=== PATIENT | female | born 1940 | race Caucasian/White ===

== ENCOUNTER 2021-06-23 09:28 | Emergency (ER) | payer MEDICARE, SELFPAY ==
--- NOTE | ~2021-06-23 | XR_ITS ---
EXAMINATION: XR knee RT min 4V EXAM DATE: 06/23/2021 10:14 INDICATION: 06/22/21 Walking, [place]. Ant. Knee Pain Since. TECHNIQUE: Right knee frontal, crosstable lateral, orthogonal oblique projections for interpretation . [place] projection. There are no prior studies for comparison. FINDINGS: No evidence osteochondral defect or joint body in the right knee joint. There is mild to m oderate right knee primary osteoarthritis. Mild meniscal calcification, chondrocalcinosis. Chondrocal cinosis can be an age related finding, but with other possible etiologies including CPPD, parathyroid disorders, hemochromatosis, gout. Small joint effusion. There are no acute fractures identified. IMPRESSION: 1. Small right knee joint effusion. 2. Mild to moderate osteoarthritis. 3. Chondrocalcinosis Reviewed, dictated and finalized at location B. ROOM CLERK
[2021-06-23 09:30] VITALS: BP 207/72; PULSE 71; RESP 20; TEMP 36.9; O2SAT 98
--- NOTE | 2021-06-23 09:34 | ED.LOWEXIN ---
HPI - Extremity Injury (Lower) General Chief Complaint: Extremity Injury, Lower Stated Complaint: Right Knee Pain Time Seen by Provider: 06/23/21 09:34 Source: patient and RN notes reviewed History of Present Illness HPI Narrative: Patient is an 81-year-old female presents the urgent care with complaints of right knee pain and swelling. Patient states that she was walking along her deck yesterday and heard a pop in her right knee and had sudden onset of pain. Patient denies of any trauma or fall. Denies of any past history of knee pain or injury. States that pain exacerbates with weightbearing activities. States that she has been taking Tylenol for her pain with minimal improvement. No other acute complaints. No acute distress noted. Patient aware of the plan of care. Some parts of this dictation were generated by voice recognition software and may contain typographical and/or grammatical inaccuracies. Related Data Home Medications Medication Instructions Recorded Confirmed allopurinol 100 mg PO DAILY 06/23/21 06/23/21 irbesartan 300 mg PO DAILY 06/23/21 06/23/21 Allergies Allergy/AdvReac Type Severity Reaction Status Date / Time Unable to Assess Allergy Verified 06/23/21 10:12 Review of Systems Review of Systems: CONSTITUTIONAL: Denies fever, chills, or sweats. EYES: Denies visual changes, redness, or discharge. ENT: Denies rhinorrhea, congestion, sore throat, or otalgia. CARDIOVASCULAR: Denies chest pain, palpitations, or edema. RESPIRATORY: Denies cough or dyspnea. GASTROINTESTINAL: Denies abdominal pain, nausea, vomiting, or diarrhea. GENITOURINARY: Denies dysuria or hematuria. SKIN: Denies rash or itching. MUSCULOSKELETAL: Reports of right knee pain and swelling NEUROLOGIC: Denies headache, numbness, or weakness. All other systems reviewed are negative, except as documented in HPI. PMFSH Comments At the time of my signature, I reviewed and agree with the nursing past medical, surgical, social, and family history. There is no relevant family history pertinent to the patient complaint. Exam Narrative: GENERAL: This is a well-nourished, well-developed patient, in no apparent distress. HEAD: normocephalic, atraumatic. EYES: PERRL. Sclera clear/white. Vision is grossly intact. EARS: External ears normal NOSE: External nose normal with no obvious nasal discharge, nares without redness, no rhinorrhea. THROAT: Mucous membranes moist NECK: Neck supple SKIN: warm, intact with no suspicious lesions or rash, good texture and turgor. NEURO: awake, alert, and oriented to person, place and time. There were no obvious focal neurologic abnormalities. EXTREMITIES: Mild to moderate edema noted to the anterior medial right knee with mild tenderness. Unable to evaluate full range of motion due to patient's pain intolerance. Exacerbated anterior pain with mild flexion and extension. Positive strong right pedal pulse with capillary refill less than 2 seconds. No obvious deformity noted to the right lower extremity. No erythema noted. No ecchymosis noted. Course Course Level of Care: Express Care Visit Vital Signs Vital signs: Vital Signs Temperature 98.5 F 06/23/21 09:30 Pulse Rate 71 06/23/21 09:30 Respiratory Rate 20 06/23/21 09:30 Blood Pressure 207/72 H 06/23/21 09:30 Pulse Oximetry 98 06/23/21 09:30 Temperature 98.5 F 06/23/21 10:12 Pulse Rate 71 06/23/21 10:12 Respiratory Rate 20 06/23/21 10:12 Blood Pressure 207/72 H 06/23/21 10:12 Pulse Oximetry 98 06/23/21 10:12 Reviewed-patient is informed that they may have pre-hypertension or hypertension based on a blood pressure reading in the department. I recommend the patient call the primary care provider listed on their discharge instructions or a physician of their choice this week to arrange follow-up for further evaluation of possible pre-hypertension or hypertension. MDM - Extremity Injury (Lower) MDM Narrative Medical dec
[2021-06-23 10:12] VITALS: BP 207/72; PULSE 71; RESP 20; TEMP 36.9; O2SAT 98
[2021-06-23 10:56] VITALS: BP 202/66
== END 2021-06-23 10:56 | disposition home or self-care (01) ==
PROVIDERS: Emergency Provider Nurse Practitioner Family
DX: M25.461 Effusion, right knee (principal); M11.261 Other chondrocalcinosis, right knee; Z85.3 Personal history of malignant neoplasm of breast; Z85.42 Personal history of malignant neoplasm of other parts of uterus
CPT/HCPCS: 73564; 99213; G0463; L1830

== ENCOUNTER 2021-07-04 12:12 | Outpatient (CLI) | payer MEDICARE, SELFPAY ==
--- NOTE | ~2021-07-04 | MR_ITS ---
EXAMINATION: MR knee RT wo con DATE: 07/04/2021 13:59 INDICATION: Internal derangement of the right knee with medial sided pain TECHNIQUE: Magnetic resonance imaging (MRI) of the right knee was performed without intravenous contr ast. Sequences included coronal PD-weighted FSE, coronal PD-weighted FS FSE, sagittal T2-weighted FS E, sagittal PD-weighted FS FSE and axial PD weighted fat saturated FSE. COMPARISON: None. FINDINGS: Medial compartment: Near full-thickness radial tear at the body. Medial meniscus. Partial-thickness cartilage loss with s mooth chondral surface irregularity throughout the weightbearing medial femoral condyle which involve s carotid and 50% of the cartilage thickness at the anterior to central weightbearing medial femoral condyle. Less severe partial thickness cartilage loss at the anterior and medial margin of the medial tibial plateau. Lateral compartment: Lateral meniscus is normal. Deep chondral fissuring at the posterior aspect of the lateral tibial geovany teau. Deep chondral ulceration with small central subchondral osteophyte at the posterior weightbeari ng lateral femoral condyle. Mild chondral fissuring at the central weightbearing lateral femoral cond yle. Patellofemoral compartment: Partial-thickness chondral ulceration with shallow fissuring at the patellar apical ridge and at the medial facet, the latter with small region with gradient 50% cartilage thickness loss. Deep chondral ulceration and fissuring with underlying cortical irregularity and small central osteophytes at the i nferior aspect of the medial trochlea. Ligaments and tendons: Anterior and posterior cruciate ligaments are normal. There is a longitudinal tear at the interface b etween the medial patellofemoral retinaculum and the anterior margin of the otherwise normal medial c ollateral ligament. There is mild/soft tissue edema suggesting relatively recent injury. The fibular collateral ligament complex is normal. Quadriceps tendon is normal. Mild tendinopathy and small enthe sophyte at the patellar insertion of the patellar tendon. There are couple bands of magic angle artif act at the distal patellar tendon. The visualized medial and lateral hamstring tendons as well as the iliotibial band are normal. Fluid: Minimal right knee joint effusion at the medial aspect of the suprapatellar pouch. No loose osteochon dral bodies identified. Moderate-sized Zee's cyst measuring 6 cm craniocaudally and 2.0 x 0.7 cm in maximal transaxial dimensions. Osseous/other: Normal marrow signal. No fracture or pathologic marrow replacing process. IMPRESSION: 1. Relatively recent tear at the confluence between the medial patellofemoral retinaculum and the ant erior margin of the otherwise normal medial collateral ligament. 2. Near full-thickness radial tear at the body of the medial meniscus. 3. 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 4. Minimal right knee joint effusion with moderate-sized Zee's cyst. Reviewed, dictated and finalized at location A. IMPRESSION: 1. Relatively recent tear at the confluence between the medial patellofemoral r etinaculum and the anterior margin of the otherwise normal medial collateral li gament. 2. Near full-thickness radial tear at the body of the medial meniscus. 3. Tricompartmental osteoarthritis, mild to moderate severity in the medial com partment and mild in the lateral and patellofemoral compartments with regions o f high-grade chondromalacia in all 3 compartments. 4. Minimal right knee joint effusion with moderate-sized Zee's cyst.
== END 2021-07-04 12:13 | disposition home or self-care (01) ==
PROVIDERS: Visit Provider Orthopaedic Surgery
DX: M17.11 Unilateral primary osteoarthritis, right knee (principal); M25.461 Effusion, right knee
CPT/HCPCS: 73721